=== PATIENT | female | born 1990 | race Two or more races ===

== ENCOUNTER 2018-11-17 07:00 | Inpatient (IN) | payer OTHER ==
[~2018-11-17] VITALS: Ht 149.9 cm; Wt 68.0 kg
--- NOTE | 2018-11-17 07:14 | NUR ---
STAT CALL TO MAIN LOBBY AT 07:14. PT DELIVERING IN THE LOBBY. BABY DELIVERED BY DR MURILLO. MOTHER AND BABY WHERE TRANSPORTED TO LABOR AND DELIVERY #4 WITHOUT INCIDENT. BABY PLACED ON WARMER. MOUTH AND NOSE SUCTIONED. BABY ACTIVE AND CRYING, HR 130 BPM, GOOD COLOR NOTED, NORMAL RESPIRATORY EFFORT. BABY ON RA. 96%-98% O2 SATS.
[2018-11-17] MEDS ORDERED: LACT. RINGERS/OXYTOCIN 20UNITS 1,000 ML IV SCH (08:21)
[2018-11-17] MEDS ORDERED: LACTATED RINGER'S 1,000 ML IV SCH (08:21)
[2018-11-17] MEDS ORDERED: WITCH HAZEL-GLYCERIN PAD TOP PRN (08:30)
[2018-11-17] MEDS ORDERED: METHYLERGONOVINE MALEATE 0.2 MG/ML AMP IM PRN (08:30)
[2018-11-17] MEDS ORDERED: DERMOPLAST 60ML BOTTLE TOP PRN (08:30)
[2018-11-17] MEDS ORDERED: LIDOCAINE 2%HCL (LOCAL ANESTH.) INJ 20ML MDV ID PRN (08:30)
[2018-11-17] MEDS ORDERED: PHISODERM TOP SOLN 240ML BTL TOP PRN (08:30)
[2018-11-17 09:11] LABS: Urine Bacteria NONE SEEN /hpf (None Seen); Urine Blood 2+ /uL (Negative); Urine Mucus FEW (None Seen); Urine WBC 2 /hpf (0 - 5)
[2018-11-17] MEDS ORDERED: ACETAMINOPHEN 325 MG TAB PO PRN (09:15)
[2018-11-17] MEDS ORDERED: IBUPROFEN 600 MG TAB PO PRN (09:15)
[2018-11-17 09:21] LABS: Alcohol, Urine < 3.0 mg/dL (0-5); Amphetamine Screen, Urine NEGATIVE (NEGATIVE); Barbiturate Scree,Urine NEGATIVE (NEGATIVE); Benzodiazephine Screen, Urine NEGATIVE (NEGATIVE); Cannabinoid Screen, Urine NEGATIVE (NEGATIVE); Cocaine Screen, Urine NEGATIVE (NEGATIVE); Opiate Scree,Urine NEGATIVE (NEGATIVE); Phencyclidine Screen, Urine NEGATIVE (NEGATIVE)
[2018-11-17 10:00] LABS: Basophils # (auto) 0 uL; Basophils % (auto) 0.2 % (0.0-2.0); Eosinophils # (auto) 0 uL; Hematocrit 36.3 % (36.0-46.0); Hemoglobin 12.1 g/dL (12.2-16.2); Lymphocytes # (auto) 0.9 uL; Lymphocytes % (auto) 6.3 % (10.0-50.0); Mean Corpuscular Hemoglobin 28.3 pg (28.0-32.0); Mean Corpuscular Hgb Conc. 33.4 g/dL (32.0-36.0); Mean Corpuscular Volume 84.8 fL (80.0-100.0); Monocytes # (auto) 0.5 uL; Monocytes % (auto) 3.6 % (0.0-12.0); Neutrophils # (auto) 13.3 uL; Neutrophils % (auto) 89.9 % (37.0-80.0); Platelet Count (auto) 301 10^3/uL (140-450); Red Blood Cells 4.28 10^6/uL (4.0-5.20); Red Cell Distribution Width 15.5 % (11.8-14.3); White Blood Cell 14.8 10^3/uL (4.4-10.8)
[2018-11-17 10:02] LABS: INR < 0.93 (0.9-1.15)
[2018-11-17 10:06] LABS: Albumin 2.6 g/dL (3.4-5.0); BUN/Creatinine Ratio 13.7; Calcium 8.5 mg/dL (8.5-10.1); Potassium 4.2 mmol/L (3.5-5.1)
[2018-11-17 10:08] LABS: Bilirubin, Total 0.2 mg/dL (0.2-1.0); Total Protein 6.4 g/dL (6.4-8.2)
[2018-11-17] MEDS ORDERED: OXYTOCIN 10UNIT/ML 1ML VIAL IM ONE (10:15)
[2018-11-17 10:28] VITALS: BP 119/79
--- NOTE | 2018-11-17 10:28 | NUR ---
Ambulation: Patient OOB with standby assistance by RN. Patient ambulated to bathroom with steady gait. Patient able to void 650ml pink tinged urine without difficulty. [facility] teaching provided with returned demonstration by patient. Clean gown provided and bed linen changed. Patient ambulated back to bed with steady gait and no distress noted.
[2018-11-17 10:30] VITALS: BP 119/79
--- NOTE | 2018-11-17 12:20 | NUR ---
PATIENT MOVED TO ROOM 107A WITH ALL PERSONAL BELONGINGS VIA WHEELCHAIR ACCOMPANIED BY FOB AND INFANT IN OPEN CRIB. NO DISTRESS NOTED.
[2018-11-17 15:00] VITALS: BP 107/73
--- NOTE | 2018-11-17 18:26 | NUR ---
PT REPORT GIVEN TO MAITE CARRERO ON STABLE PATIENT, RELINQUISHED CARE. NO DISTRESS NOTED.
[2018-11-17 19:00] VITALS: BP 116/79
[2018-11-17 22:55] VITALS: BP 123/75
--- NOTE | 2018-11-17 23:00 | NUR ---
IV removal Patient c/o pain at the IV site.IV in the R forearm dc'd with clean sterile technique, catheter fully intact. Pressure dressing applied to site. Patient tolerated well.
[2018-11-18 02:46] VITALS: BP 115/75
[2018-11-18 06:06] LABS: Rubella Antibodies, IgG 1.36 index (Immune >0.99)
[2018-11-18 07:06] LABS: RPR Non Reactive (Non Reactive)
[2018-11-18 07:20] VITALS: BP 104/72
[2018-11-18] MEDS ORDERED: CETI1TAB36 PO (09:03)
[2018-11-18] MEDS ORDERED: PREN-96 PO (09:03)
[2018-11-18] MEDS ORDERED: FERR27TA2 PO (09:03)
--- NOTE | 2018-11-18 10:10 | NUR ---
Discharge: Discharge instructions given as ordered. Pt encouraged to follow up with [facility] as instructed. All questions and concerns addressed. Patient verbalized understanding. Medication reconciliation completed and copy given to patient. All required/requested vaccines given and copies of vaccinations given to patient. Patient encouraged to prepare to depart unit.
--- NOTE | 2018-11-18 10:55 | NUR ---
Discharge: Patient ambulated to vehicle with all personal belongings, accompanied by staff and family member. No distress noted at time of departure, no adverse changes in status since initial assessment.
== END 2018-11-18 10:55 | disposition home or self-care (01) | DRG 807 ==
LOC: UNDOADMOB 07:00 → LDRP 07:00 → OBSVTOIN 07:07 → LDRP 07:07
PROVIDERS: ADMIT Obstetrics & Gynecology; ATTEND Obstetrics & Gynecology
PROC: 10E0XZZ Delivery of Products of Conception, External Approach (ICD-10-PCS; principal; 2018-11-17)
DX: O80 Encounter for full-term uncomplicated delivery (principal); Z37.0 Single live birth; Z3A.38 38 weeks gestation of pregnancy
CPT/HCPCS: 36415; 59409; 80053; 80307; 81001; 84112; 85025; 85610; 85730; 86592; 86703; 86762; 86850; 86870; 86900; 86901; 87340; 96361; 96372; G0378; J2590